=== PATIENT | male | born 1950 | race Hispanic/Latino ===

== ENCOUNTER 2017-07-27 08:50 | Day surgery (SDC) | payer BC, MEDICARE ==
[~2017-07-27] VITALS: Ht 177.8 cm; Wt 77.9 kg
[~2017-07-27 08:50] MED LIST: AMLO2.5T2 PO; FEXO1TAB8 PO; MOME17N NS; MULT-1203 PO; NIAC500T22 PO; QUIN1TAB PO; RANI150C4 PO; SODIUM CHLORIDE 0.9% 1000ML 1,000 ML IV ONE; UBID50TA3 PO
[2017-07-27 09:37] VITALS: BP 119/79
[2017-07-27] MEDS ORDERED: MEPERIDINE-PF 50 MG/ML SYG ONE (10:48)
[2017-07-27] MEDS ORDERED: MIDAZOLAM HCL 1 MG/ML 2ML VIAL ONE (10:48)
[2017-07-27 11:11] VITALS: BP 110/72
[2017-08-30] MEDS ORDERED: AEC81 PO (11:46)
== END 2017-07-27 11:40 | disposition home or self-care (01) ==
LOC: DAH 08:50
PROVIDERS: ATTEND Internal Medicine Gastroenterology
DX: Z09 Encounter for follow-up examination after completed treatment for conditions other than malignant neoplasm (principal); Z86.010 Personal history of colon polyps; Z68.34 Body mass index [BMI] 34.0-34.9, adult; K21.9 Gastro-esophageal reflux disease without esophagitis; I10 Essential (primary) hypertension; Z90.49 Acquired absence of other specified parts of digestive tract; Z79.899 Other long term (current) drug therapy; K57.30 Diverticulosis of large intestine without perforation or abscess without bleeding; Z98.890 Other specified postprocedural states
CPT/HCPCS: 93005; A4606; G0105; J2175; J2250; J7030

== ENCOUNTER 2017-09-03 06:12 | Day surgery (SDC) | payer BC, MEDICARE ==
[~2017-09-03] VITALS: Ht 180.3 cm; Wt 77.2 kg
[~2017-09-03 06:12] MED LIST changes: +AEC81 PO; -SODIUM CHLORIDE 0.9% 1000ML 1,000 ML IV ONE
[2017-09-03] MEDS ORDERED: SODIUM CHLORIDE 0.9% 1000ML 1,000 ML IV ONE (06:27)
[2017-09-03 07:06] VITALS: BP 112/72
[2017-09-03] MEDS ORDERED: PROPOFOL 10 MG/ML 20ML VIAL IV ONE ×2 (07:44)
[2017-09-03 08:00] VITALS: BP 88/51
== END 2017-09-03 08:33 | disposition home or self-care (01) ==
LOC: DAH 06:12
PROVIDERS: ATTEND Internal Medicine Gastroenterology
DX: K29.50 Unspecified chronic gastritis without bleeding (principal); B96.81 Helicobacter pylori [H. pylori] as the cause of diseases classified elsewhere; Z68.33 Body mass index [BMI] 33.0-33.9, adult; K21.9 Gastro-esophageal reflux disease without esophagitis; Z86.010 Personal history of colon polyps; I10 Essential (primary) hypertension; Z79.899 Other long term (current) drug therapy; K31.89 Other diseases of stomach and duodenum
CPT/HCPCS: 43239; 88305; 88312; 88342; 93005; A4606; J2704 ×2; J7030

== ENCOUNTER 2018-03-01 06:23 | Day surgery (SDC) | payer BC, MEDICARE ==
[2018-02-27 15:44] VITALS: BP 110/68
[2018-02-27 15:48] LABS: BASOPHILS % (AUTO) 0.7 % (0.0-5.0); EOSINOPHILS % (AUTO) 0.6 % (0.0-8.0); HEMATOCRIT 43.2 % (42-54); LYMPHOCYTES % (AUTO) 16.8 % (21.0-51.0); MEAN CORPUSCULAR HEMOGLOBIN 31.8 pg (27.0-33.0); MEAN CORPUSCULAR HGB CONC 35.2 g/dL (32.0-36.0); MEAN CORPUSCULAR VOLUME 90.4 fL (79-99); MONOCYTES % (AUTO) 8.4 % (3.0-13.0); NEUTROPHILS % (AUTO) 73.5 % (40.0-77.0); PLATELET COUNT (AUTO) 240 K/uL (130-400); RED BLOOD CELL COUNT(AUTO) 4.78 MIL/uL (4.50-6.20); RED CELL DISTRIBUTION WIDTH 12.6 % (11.0-15.5); WHITE BLOOD COUNT (AUTO) 7.3 K/uL (4.8-10.8)
[2018-02-27 15:57] LABS: CREATININE 1.2 mg/dL (0.5-1.5); POTASSIUM 3.9 mmol/L (3.5-5.1)
[2018-03-01] VITALS (18 sets, daily range): BP systolic 106–131; BP diastolic 69–82
[~2018-03-01] VITALS: Ht 180.3 cm; Wt 76.7 kg
[2018-03-01] MEDS: CEFTRIAXONE SODIUM 1 GM IVP SCH ×2 (06:00→08:10)
[~2018-03-01 06:23] MED LIST changes: -FEXO1TAB8 PO; -MOME17N NS; -MULT-1203 PO; -NIAC500T22 PO; -RANI150C4 PO; -UBID50TA3 PO
[2018-03-01] MEDS ORDERED: LIDOCAINE PF 2% 5ML ABBOJECT ONE (06:39)
[2018-03-01] MEDS ORDERED: ONDANSETRON HCL 4 MG/2 ML VIAL ONE (06:39)
[2018-03-01] MEDS ORDERED: PROPOFOL 10 MG/ML 20ML VIAL IV ONE (06:39)
[2018-03-01] MEDS ORDERED: DEXAMETHASONE SOD PHOSPHATE 10MG/ML 1ML VIAL ONE ×2 (06:39→07:57)
[2018-03-01] MEDS ORDERED: FAMOTIDINE/PF 20 MG/2 ML VIAL IV ONE (06:49)
[2018-03-01] MEDS ORDERED: KETAMINE 50MG/ML SYRINGE 50 MG/ML DISP.SYRIN IV ONE (06:50)
[2018-03-01] MEDS ORDERED: LACTATED RINGERS 1000ML 1,000 ML IV ONE (07:04)
[2018-03-01] MEDS ORDERED: SUB TO ALBUTEROL 2.5MG/3ML NEBULES PER P&T IH ONE ×2 (07:08→07:11)
[2018-03-01] MEDS ORDERED: ALBUMIN (HUMAN) 5% 250 ML IV ONE (07:10)
[2018-03-01] MEDS ORDERED: GLYCOPYRROLATE 1 MG/5 ML SYRINGE ONE (07:11)
[2018-03-01] MEDS ORDERED: RANI150T7 PO (07:44)
[2018-03-01] MEDS ORDERED: ALBU8.5H8 IH (07:45)
[2018-03-01] MEDS ORDERED: UBID1CAP56 PO (07:46)
[2018-03-01] MEDS ORDERED: MOME17N NS (07:47)
[2018-03-01] MEDS ORDERED: FEXO180T94 PO (07:48)
[2018-03-01] MEDS ORDERED: PHENYLEPHRINE HCL 10 MG/ML 1ML VIAL IV ONE (08:46)
[2018-03-01] MEDS ORDERED: EPHEDRINE SULFATE 50 MG/ML AMPULE ONE (08:47)
[2018-03-01] MEDS ORDERED: OPIUM/BELLADONNA ALKALOIDS 1 EACH SUPP.RECT RC ONE (10:09)
[2018-03-01] MEDS ORDERED: PHENAZOPYRIDINE HCL 200 MG TABLET ONE (11:03)
== END 2018-03-01 12:50 | disposition home or self-care (01) ==
LOC: DAH 06:23
PROVIDERS: ATTEND Urology
DX: N40.1 Benign prostatic hyperplasia with lower urinary tract symptoms (principal); N13.8 Other obstructive and reflux uropathy; I86.8 Varicose veins of other specified sites; N32.89 Other specified disorders of bladder; I10 Essential (primary) hypertension; K21.9 Gastro-esophageal reflux disease without esophagitis; F15.90 Other stimulant use, unspecified, uncomplicated; J45.909 Unspecified asthma, uncomplicated; Z79.899 Other long term (current) drug therapy; Z90.49 Acquired absence of other specified parts of digestive tract; Z98.890 Other specified postprocedural states; Z72.89 Other problems related to lifestyle
CPT/HCPCS: 36415; 52648; 80048; 85025; 88305; 93005; A4218; A4340; A4354; A4358; A4510; A4600; J0696; J1100 ×2; J2001; J2405; J2704; J3490 ×4; J7030; J7120; P9045; J2370

== ENCOUNTER 2018-08-28 06:43 | Day surgery (SDC) | payer BC, MEDICARE ==
[2018-08-27 11:15] VITALS: BP 107/72
[2018-08-27 11:33] LABS: HEMATOCRIT 45.4 % (42-54); LYMPHOCYTES % (AUTO) 18.7 % (21.0-51.0); MEAN CORPUSCULAR HEMOGLOBIN 31.1 pg (27.0-33.0); MEAN CORPUSCULAR HGB CONC 34.1 g/dL (32.0-36.0); MEAN CORPUSCULAR VOLUME 91.2 fL (79-99); MONOCYTES % (AUTO) 10.1 % (3.0-13.0); NEUTROPHILS % (AUTO) 67.2 % (40.0-77.0); NUCLEATED RED BLOOD CELLS 0.1 % (0.0-0.19); PLATELET COUNT (AUTO) 185 K/uL (130-400); RED BLOOD CELL COUNT(AUTO) 4.99 MIL/uL (4.50-6.20); RED CELL DISTRIBUTION WIDTH 13.4 % (11.0-15.5); WHITE BLOOD COUNT (AUTO) 5.7 K/uL (4.8-10.8)
[2018-08-27 11:38] LABS: APPEARANCE,URINE Clear (CLEAR); BILIRUBIN,URINE Negative (NEGATIVE); COLOR,URINE Yellow (YELLOW); GLUCOSE, URINE (UA) Negative (NEGATIVE); KETONES,URINE Negative (NEGATIVE); LEUKOCYTE ESTERASE ,URINE Negative (NEGATIVE); NITRATE,URINE Negative (NEGATIVE); OCCULT BLOOD,URINE Negative (NEGATIVE); PROTEIN,URINE Negative (NEGATIVE); UROBILINOGEN,URINE 0.2 mg/dL (0.2-1.0)
[2018-08-27 11:44] LABS: CREATININE 1.1 mg/dL (0.5-1.5)
--- NOTE | 2018-08-27 12:17 | NUR ---
ABN EKG SHOWN TO DR. BARRIOS, NO NEW ORDERS.
[~2018-08-28 06:43] MED LIST changes: -AEC81 PO; +ALBU8.5H8 IH; +FEXO180T94 PO; +MOME17N NS; +PANT40TA25 PO; +RANI150T7 PO
[2018-08-29] VITALS (14 sets, daily range): BP systolic 95–132; BP diastolic 53–82
[2018-08-29] MEDS: LACTATED RINGERS 1000ML 1,000 ML IV SCH ×2 (08:15→08:23)
[2018-08-29] MEDS ORDERED: LIDOCAINE PF 2% 5ML ABBOJECT ONE (08:21)
[2018-08-29] MEDS ORDERED: DEXAMETHASONE SOD PHOSPHATE 10MG/ML 1ML VIAL ONE (08:21)
[2018-08-29] MEDS ORDERED: MIDAZOLAM HCL 1 MG/ML 2ML VIAL ONE (08:21)
[2018-08-29] MEDS ORDERED: ONDANSETRON HCL 4 MG/2 ML VIAL ONE (08:21)
[2018-08-29] MEDS ORDERED: PROPOFOL 10 MG/ML 20ML VIAL IV ONE (08:22)
[2018-08-29] MEDS ORDERED: FENTANYL CITRATE PF 50 MCG/1 ML 2ML VIAL ONE (08:22)
[2018-08-29] MEDS ORDERED: GLYCOPYRROLATE 1 MG/5 ML SYRINGE ONE (08:32)
[2018-08-29] MEDS ORDERED: ROCURONIUM 10MG/1ML SYR 10 MG/ML ML ONE (08:43)
[2018-08-29] MEDS ORDERED: BUPIVACAINE/PF 0.25% 30ML VIAL IJ ONE (08:44)
[2018-08-29] MEDS ORDERED: NEOSTIGMINE 5MG/5ML SYR IV ONE (09:16)
--- NOTE | 2018-08-29 11:25 | NUR ---
PT DISCHARGED HOME, TOLERATING FLUIDS WELL, AMBULATING WELL WITH STAND-BY ASSISTANCE, VOIDED JUST PRIOR TO DISCHARGE. PT DENIES ANY SEVERE PAIN OR NAUSEA. DRESSING TO RIGHT GROIN DRY, CLEAN, AND INTACT. PT INSTRUCTED TO LEAVE DRESSING ALONE AND TO KEEP IT DRY UNTIL SEEN BY DR. SALEEM TOMORROW. PT ADMITS TO SLIGHT DIZZINESS, BUT DOES NOT APPEAR TO AFFECT HIS AMBULATING OR MOVEMENT. PT INSTRUCTED TO GO HOME AND REST UNTIL THE DIZZINESS WEARS OFF. ICE PACK THAT WAS APPLIED TO RIGHT HERNIA REPAIR UPON PT'S ARRIVAL TO DAY PT, SENT HOME WITH PT FOR HOME USE. PT AND SPOUSE REPORT NO FURTHER QUESTIONS AT THIS TIME.
== END 2018-08-29 11:25 | disposition home or self-care (01) ==
LOC: DAH 06:43
PROVIDERS: ATTEND Surgery
DX: K40.90 Unilateral inguinal hernia, without obstruction or gangrene, not specified as recurrent (principal); I10 Essential (primary) hypertension; E66.3 Overweight; Z98.890 Other specified postprocedural states; Z79.899 Other long term (current) drug therapy
CPT/HCPCS: 36415; 49505; 80048; 81003; 85025; 93005; A4450; A4452; A4930; C1729; C1781; J1100; J2001; J2250; J2405; J2704; J2710; J3010; J3490 ×2; J7030; J7120

== ENCOUNTER → 2018-11-05 | Outpatient (CLI) | payer BC, MEDICARE | END | disposition home or self-care (01) | LOC: RAH 14:49 | PROVIDERS: ATTEND Urology | DX: N32.89 Other specified disorders of bladder (principal); R31.0 Gross hematuria | CPT/HCPCS: 76770 ==

== ENCOUNTER → 2019-10-23 | Outpatient (CLI) | payer OTHER | END | disposition home or self-care (01) | LOC: RAH 10:30 | PROVIDERS: ATTEND Family Medicine | DX: G44.319 Acute post-traumatic headache, not intractable (principal) | CPT/HCPCS: 70450 ==

== ENCOUNTER → 2020-03-29 | Outpatient (CLI) | payer OTHER ==
[~2020-03-29] MED LIST changes: +IOHEXOL-350 75 ML VIAL IV ONE; -PANT40TA25 PO; +PANT40TA54 PO; -QUIN1TAB PO; +QUIN1TAB17 PO
== END | disposition home or self-care (01) ==
LOC: RAH 07:36
PROVIDERS: ATTEND Urology
DX: N40.0 Benign prostatic hyperplasia without lower urinary tract symptoms (principal); R31.0 Gross hematuria
CPT/HCPCS: 74178; Q9967

== ENCOUNTER → 2021-03-16 | Outpatient (CLI) | payer MEDICARE ==
[~2021-03-16] MED LIST changes: +IOHEXOL 350 MG/ML 100ML INFUS..BTL IV ONE; -IOHEXOL-350 75 ML VIAL IV ONE
== END | disposition home or self-care (01) ==
LOC: RAH 08:30
PROVIDERS: ATTEND Urology
DX: N40.0 Benign prostatic hyperplasia without lower urinary tract symptoms (principal); K44.9 Diaphragmatic hernia without obstruction or gangrene; K57.90 Diverticulosis of intestine, part unspecified, without perforation or abscess without bleeding; R31.0 Gross hematuria
CPT/HCPCS: 74178; Q9967

== ENCOUNTER → 2022-07-18 | Outpatient (CLI) | payer MEDICARE ==
[~2022-07-18] MED LIST changes: -IOHEXOL 350 MG/ML 100ML INFUS..BTL IV ONE; -MOME17N NS; +MOME17SP4 NS
== END | disposition home or self-care (01) ==
LOC: RAH 13:25
PROVIDERS: ATTEND Family Medicine
DX: R93.89 Abnormal findings on diagnostic imaging of other specified body structures (principal)
CPT/HCPCS: 71250

== ENCOUNTER 2022-11-19 07:48 | Emergency (ER) | payer MEDICARE ==
[~2022-11-19] VITALS: Ht 175.3 cm; Wt 78.0 kg
[2022-11-19] MEDS ORDERED: ACETAMINOPHEN 325 MG TAB ONE (08:03)
[2022-11-19] MEDS ORDERED: KETOROLAC 30MG VIAL (30MG/ML) IM ONE (09:00)
[2022-11-19] MEDS ORDERED: CEFTRIAXONE 1G VIAL IM ONE (09:00)
[2022-11-19] MEDS ORDERED: AMOX1TAB16 PO (09:21)
[2022-11-19 10:02] VITALS: BP 132/87
== END 2022-11-19 10:03 | disposition home or self-care (01) ==
LOC: EDH 07:48
DX: J06.9 Acute upper respiratory infection, unspecified (principal); I10 Essential (primary) hypertension; E78.00 Pure hypercholesterolemia, unspecified; Z20.822 Contact with and (suspected) exposure to COVID-19; Z79.899 Other long term (current) drug therapy; Z90.49 Acquired absence of other specified parts of digestive tract; Z98.890 Other specified postprocedural states
CPT/HCPCS: 99284; 87635; 87804 ×2; 96372 ×2; C9803; J0696; J1885

== ENCOUNTER → 2024-01-31 | Outpatient (CLI) | payer MEDICARE ==
[~2024-01-31] MED LIST changes: +AMOX1TAB16 PO
[2024-01-31 10:02] LABS: CHOLESTEROL 112 mg/dL (<200); HDL CHOLESTEROL 50 mg/dL (29-71); LDL DIRECT 54 mg/dL (0-99); TRIGLYCERIDES 92 mg/dL (30-200)
== END | disposition home or self-care (01) ==
LOC: LAB 08:06
PROVIDERS: ATTEND Internal Medicine Cardiovascular Disease
DX: E78.5 Hyperlipidemia, unspecified (principal)
CPT/HCPCS: 36415; 80061